=== PATIENT | female | born 1995 | race African-American/Black ===

== ENCOUNTER 2017-04-07 13:52 | Emergency (ER) | payer MEDICAID ==
[~2017-04-07 13:52] MED LIST: PRENCAP PO
--- NOTE | 2017-04-07 14:45 | PD ---
HPI Travel History International Travel<30 Days: No Contact w/Intl Traveler<30Days: No Known Affected Area: No History of Present Illness HPI 21 yr old at 37 weeks presenting with intermittent contractions. Reports that contractions started on Friday and have been occurring every 10-15 min intermittently for the last couple of days. Reports that she has been feeling pressure-like, stabbing pain. Also reports 2-3 weeks of intermittent spotting. Reports good movement. Denies leakage of fluid and dysuria. She has been receiving care at [facility]. History Past Medical History Medical History: Denies Significant Hx Obstetric History Obstetric History at 37 weeks Past deliveries were Past Surgical History Surgical History: No Previous Surgery Family History Family History: Negative Social History Alcohol Use: No Tobacco Use: No Substance Abuse: No Allergies-Medications (Allergen,Severity, Reaction): Coded Allergies: shellfish derived (Verified Allergy, Severe, Anaphylaxis, 04/02/17) Uncoded Allergies: HONEY MUSTARD (Allergy, Severe, HARD TO BREATHE, 12/10/13) Home Meds Active Scripts Without A W/ Fe Fumar (Prenate Dha 28-0.6-0.4-300 mg) 28 Mg Iron-1 Mg- 300 Mg Cap, 1 TAB PO DAILY, #30 BOTTLE 11 Refills Prov:Deidra Mckeon 02/19/17 Review of Systems Except as stated in HPI: all other systems reviewed are Neg Physical Exam Narrative GENERAL: Well-nourished, well-developed patient. SKIN: Warm and dry. HEAD: Normocephalic and atraumatic. EYES: No scleral icterus. No injection or drainage. ENT: No nasal drainage noted. Mucous membranes pink. Airway patent. NECK: Supple, trachea midline. No JVD. CARDIOVASCULAR: Regular rate and rhythm without murmurs, gallops, or rubs. RESPIRATORY: Breath sounds equal bilaterally. No accessory muscle use. ABDOMEN/GI: Abdomen soft, non-tender, bowel sounds present, no rebound, no guarding VAGINAL EXAM: closed, normal cervix FHTs: category 1, baseline 130s, reactive, moderate variability, no decels EXTREMITIES: No cyanosis or edema. BACK: Nontender without obvious deformity. No CVA tenderness. NEUROLOGICAL: Awake and alert. Motor and sensory grossly within normal limits. Data Data Vital Signs Reviewed: Yes Orders Orders Vital Signs (Adult) .ON ADMISSION (04/07/17 14:37) ^ Labor Status (04/07/17 14:37) ^ Non Stress Test (04/07/17 14:37) ^ Hydration (04/07/17 14:37) MDM Narrative Course / MDM 21 yr old at 37 weeks with [place] contractions -FHTs reassuring -Hydrate frequently -Return to ED if having regular contractions Diagnosis Diagnosis: Primary Impression: [place] contractions Disposition: 01 DISCHARGE HOME Condition: Good Ragini Merritt MD R1 Apr 07, 2017 14:45
== END 2017-04-07 15:15 | disposition home or self-care (01) ==
LOC: HOBED 13:52
DX: O47.1 False labor at or after 37 completed weeks of gestation (principal); Z3A.37 37 weeks gestation of pregnancy
CPT/HCPCS: 59025

== ENCOUNTER 2017-04-20 23:56 | Inpatient (IN) | payer MEDICAID ==
[~2017-04-20] VITALS: Ht 167.6 cm; Wt 80.7 kg
[2017-04-21] VITALS (29 sets, daily range): BP systolic 98–137; BP diastolic 44–94; PULSE 66–125; RESP 16–20; TEMP 97.7–98.7; O2SAT 100
[2017-04-21] MEDS ORDERED: LACTATED RINGER'S 1000 ML INJ 1,000 ML IV PRN (00:43)
[2017-04-21] MEDS ORDERED: SODIUM CHLORID 0.9% 500 ML INJ 500 ML IV PRN (00:45)
[2017-04-21] MEDS ORDERED: CITRIC ACID-SODIUM CITRATE LIQ 30 ML UDC PO SCH (00:45)
[2017-04-21] MEDS ORDERED: MINERAL OIL 10 ML VIAL TOPICAL PRN (00:45)
[2017-04-21] MEDS ORDERED: OXYTOCIN 30 UNITS-500ML PREMIX 500 ML IV ONE (00:45)
[2017-04-21] MEDS ORDERED: OXYTOCIN 30 UNITS-500ML PREMIX 500 ML IV SCH ×2 (00:45→04:15)
[2017-04-21] MEDS ORDERED: LIDOCAINE HCL 1% 50 ML VIAL I-DERMAL PRN (00:45)
[2017-04-21] MEDS ORDERED: LIDOCAINE HCL 1% 50 ML VIAL INFIL PRN (00:45)
[2017-04-21] MEDS ORDERED: PENICILLIN G POTASSIUM INJ 5,000,000 UNITS in SODIUM CHLORIDE 0.9% INJ 100 ML IV ONE (00:45)
[2017-04-21] MEDS ORDERED: ONDANSETRON HCL 4 MG/2 ML VIAL IV PUSH PRN (00:45)
--- NOTE | 2017-04-21 01:01 | PD ---
HPI Chief Complaint LOF Date Seen: Apr 21, 2017 Time Seen: 00:56 Travel History International Travel<30 Days: No Contact w/Intl Traveler<30Days: No Known Affected Area: No History of Present Illness HPI Pt is a 21y/o @ 39.2wks. She has late (24wks) PNC at [facility]. She presents with reports of LOF @ 11pm (clear). She states that when she arrived, ctx started. She denies VB. +FM. Weeks Gestation: 39 Para: 2 : 3 Last Menstrual Period: Apr 21, 2017 History Past Medical History Medical History: Denies Significant Hx Obstetric History Obstetric History x2 Past Surgical History Narrative Surgical vision sx @ age 2 Family History Family History: Negative Social History Alcohol Use: No Tobacco Use: No Substance Abuse: No Allergies-Medications (Allergen,Severity, Reaction): Coded Allergies: shellfish derived (Verified Allergy, Severe, Anaphylaxis, 04/21/17) Uncoded Allergies: HONEY MUSTARD (Allergy, Severe, HARD TO BREATHE, 12/10/13) Home Meds Discontinued Scripts Without A W/ Fe Fumar (Prenate Dha 28-0.6-0.4-300 mg) 28 Mg Iron-1 Mg- 300 Mg Cap, 1 TAB PO DAILY, #30 BOTTLE 11 Refills Prov:Deidra Mckeon 02/19/17 Review of Systems Except as stated in HPI: all other systems reviewed are Neg Physical Exam Narrative GENERAL: Well-nourished, well-developed patient. SKIN: Warm and dry. HEAD: Normocephalic and atraumatic. EYES: No scleral icterus. No injection or drainage. ABDOMEN/GI: Abdomen soft, non-tender, gravid EXTREMITIES: No cyanosis BACK: Nontender without obvious deformity. NEUROLOGICAL: Awake and alert. Motor and sensory grossly within normal limits. FHTs: 150, +accels, occasion variables, moderate variability, reactive TOCO: ctx q5m CVX: 4/80/-3, +meconium stained fluid Data Data Vital Signs Reviewed: Yes Orders Orders Ob (2e) Additional Admit Info (04/21/17 00:40) Vital Signs (Adult) .ON ADMISSION (04/21/17 00:43) ^ Labor Status (04/21/17 00:43) ^ Non Stress Test (04/21/17 00:43) Pamg-1 Test .ONCE (04/21/17 00:43) Admit To Inpatient (04/21/17 ) Vital Signs (Adult) .Per protocol (04/21/17 00:43) Heart (04/21/17 00:43) Amnioinfusion (04/21/17 00:43) Urinary Catheter Management .ONCE (04/21/17 00:43) Diet Liquid (04/21/17 Breakfast) Lactated Ringer's 1000 Ml Inj (Lr 1000 M (04/21/17 00:43) Lactated Ringer's 1000 Ml Inj (Lr 1000 M (04/21/17 00:43) Sodium Chlorid 0.9% 500 Ml Inj (Ns 500 M (04/21/17 00:45) Sodium Chlor 0.9% 1000 Ml Inj (Ns 1000 M (04/21/17 01:03) Lidocaine 1% Inj (50 Ml) (Xylocaine 1% I (04/21/17 00:45) Citric Acid-Sodium Citrate Liq (Bicitra (04/21/17 00:45) Ondansetron Inj (Zofran Inj) (04/21/17 00:45) Fentanyl Inj (Fentanyl Inj) (04/21/17 00:45) Fentanyl Inj (Fentanyl Inj) (04/21/17 00:45) Penicillin G Potassium Inj (Pfizerpen-G (04/21/17 00:45) Penicillin G Potassium Inj (Pfizerpen-G (04/21/17 04:45) Complete Blood Count With Diff (04/21/17 00:43) Abo/Rh Blood Type (04/21/17 00:43) Urinalysis - C+S If Indicated (04/21/17 00:43) Drug Screen, Random Urine (04/21/17 00:43) Resp Oxygen Non Rebreathe Mask (04/21/17 ) ^ Epidural / Intrathecal Infus (04/21/17 00:43) Oxytocin 30 Units-500ml Premix (Pitocin (04/21/17 00:45) Lidocaine 1% Inj (50 Ml) (Xylocaine 1% I (04/21/17 00:45) Light Mineral Oil (Muri-Lube Oil) (04/21/17 00:45) Inpatient Certification (04/21/17 ) ^ Non Stress Test (04/21/17 00:43) Response To Medication .Post New Med Administration, Reaction (04/21/17 00:43) ^ Discontinue Medication (04/21/17 00:43) Oxytocin 30 Units-500ml Premix (Pitocin (04/21/17 00:45) Group B Strep: Positive MDM Plan 21y/o @ 39.2wks with 1. PROM -- amnisure+, mec pooling -- cvx 4/80/-3 -- pitocin PRN 2. Fetus -- cat 1 tracing 3. GBS+ -- PCN ordered Diagnosis Diagnosis: Primary Impression: 39 weeks gestation of Additional Impressions: PROM with onset of labor within 24 hours of rupture Positive GBS test Late care Condition: Delaney Lamas MD Apr 21, 2017 01:01
[2017-04-21] MEDS ORDERED: SODIUM CHLOR 0.9% 1000 ML INJ 1,000 ML IV PRN (01:03)
--- NOTE | 2017-04-21 01:04 | HHI.PR ---
REPORTING SPECIALIST Note Note HPI HPI Chief Complaint LOF Date Seen: Apr 21, 2017 Time Seen: 00:56 Travel History International Travel<30 Days: No Contact w/Intl Traveler<30Days: No Known Affected Area: No History of Present Illness HPI Pt is a 21y/o @ 39.2wks. She has late (24wks) PNC at [facility]. She presents with reports of LOF @ 11pm (clear). She states that when she arrived, ctx started. She denies VB. +FM. Weeks Gestation: 39 Para: 2 : 3 Last Menstrual Period: Apr 21, 2017 History (Limited) History Past Medical History Medical History: Denies Significant Hx Obstetric History Obstetric History x2 Past Surgical History Narrative Surgical vision sx @ age 2 Family History Family History: Negative Social History Alcohol Use: No Tobacco Use: No Substance Abuse: No Allergies-Medications Allergies-Medications (Allergen,Severity, Reaction): Coded Allergies: shellfish derived (Verified Allergy, Severe, Anaphylaxis, 04/21/17) Uncoded Allergies: HONEY MUSTARD (Allergy, Severe, HARD TO BREATHE, 12/10/13) Home Meds Discontinued Scripts Without A W/ Fe Fumar (Prenate Dha 28-0.6-0.4-300 mg) 28 Mg Iron-1 Mg- 300 Mg Cap, 1 TAB PO DAILY, #30 BOTTLE 11 Refills Prov:Deidra Mckeon 02/19/17 ROS Review of Systems Except as stated in HPI: all other systems reviewed are Neg Physical Exam Physical Exam Narrative GENERAL: Well-nourished, well-developed patient. SKIN: Warm and dry. HEAD: Normocephalic and atraumatic. EYES: No scleral icterus. No injection or drainage. ABDOMEN/GI: Abdomen soft, non-tender, gravid EXTREMITIES: No cyanosis BACK: Nontender without obvious deformity. NEUROLOGICAL: Awake and alert. Motor and sensory grossly within normal limits. FHTs: 150, +accels, occasion variables, moderate variability, reactive TOCO: ctx q5m CVX: 4/80/-3, +meconium stained fluid Data Data Data Vital Signs Reviewed: Yes Orders Orders Ob (2e) Additional Admit Info (04/21/17 00:40) Vital Signs (Adult) .ON ADMISSION (04/21/17 00:43) ^ Labor Status (04/21/17 00:43) ^ Non Stress Test (04/21/17 00:43) Pamg-1 Test .ONCE (04/21/17 00:43) Admit To Inpatient (04/21/17 ) Vital Signs (Adult) .Per protocol (04/21/17 00:43) Heart (04/21/17 00:43) Amnioinfusion (04/21/17 00:43) Urinary Catheter Management .ONCE (04/21/17 00:43) Diet Liquid (04/21/17 Breakfast) Lactated Ringer's 1000 Ml Inj (Lr 1000 M (04/21/17 00:43) Lactated Ringer's 1000 Ml Inj (Lr 1000 M (04/21/17 00:43) Sodium Chlorid 0.9% 500 Ml Inj (Ns 500 M (04/21/17 00:45) Sodium Chlor 0.9% 1000 Ml Inj (Ns 1000 M (04/21/17 01:03) Lidocaine 1% Inj (50 Ml) (Xylocaine 1% I (04/21/17 00:45) Citric Acid-Sodium Citrate Liq (Bicitra (04/21/17 00:45) Ondansetron Inj (Zofran Inj) (04/21/17 00:45) Fentanyl Inj (Fentanyl Inj) (04/21/17 00:45) Fentanyl Inj (Fentanyl Inj) (04/21/17 00:45) Penicillin G Potassium Inj (Pfizerpen-G (04/21/17 00:45) Penicillin G Potassium Inj (Pfizerpen-G (04/21/17 04:45) Complete Blood Count With Diff (04/21/17 00:43) Abo/Rh Blood Type (04/21/17 00:43) Urinalysis - C+S If Indicated (04/21/17 00:43) Drug Screen, Random Urine (04/21/17 00:43) Resp Oxygen Non Rebreathe Mask (04/21/17 ) ^ Epidural / Intrathecal Infus (04/21/17 00:43) Oxytocin 30 Units-500ml Premix (Pitocin (04/21/17 00:45) Lidocaine 1% Inj (50 Ml) (Xylocaine 1% I (04/21/17 00:45) Light Mineral Oil (Muri-Lube Oil) (04/21/17 00:45) Inpatient Certification (04/21/17 ) ^ Non Stress Test (04/21/17 00:43) Response To Medication .Post New Med Administration, Reaction (04/21/17 00:43) ^ Discontinue Medication (04/21/17 00:43) Oxytocin 30 Units-500ml Premix (Pitocin (04/21/17 00:45) Group B Strep: Positive MDM MDM Plan 21y/o @ 39.2wks with 1. PROM -- amnisure+, mec pooling -- cvx 4/80/-3 -- pitocin PRN 2. Fetus -- cat 1 tracing 3. GBS+ -- PCN ordered Diagnosis Diagnosis: Primary Impression: 39 weeks gestation of Additional Impressions: PROM with onset of labor within 24 hours of rupture Positive GBS test Late care Condition: Good eDlaney Barrera MD Apr 21, 2017 01:01 Delaney Barrera MD Apr 21, 2017 01:04
[2017-04-21 01:10] LABS: AUTOMATED NEUTROPHIL # 7.2 TH/MM3 (1.8-7.7); BASOPHIL % 0.4 % (0.0-2.0); EOSINOPHIL % 0.3 % (0.0-4.0); HEMATOCRIT 32.2 % (35.0-46.0); HEMOGLOBIN 10.9 GM/DL (11.6-15.3); LYMPH % 21.5 % (9.0-44.0); LYMPHOCYTE # 2.2 TH/MM3 (1.0-4.8); MEAN CELL VOLUME 85.5 FL (80.0-100.0); MEAN CORPUSCULAR HEMOGLOBIN 28.9 PG (27.0-34.0); MEAN CORPUSCULAR HGB CONC 33.8 % (32.0-36.0); MEAN PLATELET VOLUME 9.6 FL (7.0-11.0); MONO % 7.6 % (0.0-8.0); MONOCYTE # 0.8 TH/MM3 (0-0.9); NEUT % 70.2 % (16.0-70.0); PLATELET COUNT 211 TH/MM3 (150-450); RED BLOOD COUNT 3.76 MIL/MM3 (4.00-5.30); RED CELL DISTRIBUTION WIDTH 13.7 % (11.6-17.2); WHITE BLOOD COUNT 10.2 TH/MM3 (4.0-11.0)
[2017-04-21 01:20] LABS: AMORPHOUS SEDIMENT, URINE RARE; BACTERIA, URINE MOD /hpf; BILIRUBIN, URINE NEG (NEG); BLOOD, URINE MOD (NEG); GLUCOSE,URINE NEG (NEG); KETONE, URINE NEG (NEG); MUCUS URINE FEW /lpf (OCC); NITRITE,URINE NEG (NEG); PH, URINE 6.5 (5.0-8.5); RENAL EPITHELIAL CELLS <1 /hpf; SQUAMOUS EPITHELIAL CELL URINE 37 /hpf (0-5); URINE COLOR YELLOW (YELLW/STRAW); URINE LEUKOCYTE ESTERASE MOD (NEG)
[2017-04-21] MEDS: LACTATED RINGER'S 1000 ML INJ 1,000 ML IV SCH ×3 (01:30→16:43)
[2017-04-21] MEDS ORDERED: fentaNYL 2MCG-BUPIV 0.125% INJ 100 ML ONE (02:26)
[2017-04-21] MEDS ORDERED: ePHEDrine/NS 25 MG/5 ML SYR ONE (02:27)
[2017-04-21] MEDS ORDERED: fentaNYL 2MCG-BUPIV 0.125% 100 ML EPIDURAL SCH (02:30)
[2017-04-21] MEDS ORDERED: NO SYSTEM NARCOTICS PRN (02:30)
[2017-04-21] MEDS ORDERED: DO NOT ADMINISTER ANTICOAGULANTS PRN (02:30)
[2017-04-21] MEDS ORDERED: ePHEDrine/NS 25 MG/5 ML SYR IV PUSH PRN (03:45)
--- NOTE | 2017-04-21 04:05 | PD.OB.DELI ---
Weeks gestation: 39 Gest age assessed date: Apr 21, 2017 Gest age assessed time: 04:03 Pt started active labor?: Yes Medical induction of labor?: No Artificial rupture of membrane: No Anesthesia: Epidural Episiotomy: None Vaginal Delivery: Normal Presentation: Occiput anterior Nuchal Cord: None Delayed cord clamping (45 sec): Yes : Male Delivery date: Apr 21, 2017 Delivery time: 03:53 One Minute : 8 Five Minute : 9 Weight: 3010g (6lbs 10oz) Placenta: Spontaneous delivery, Intact, 3 vessel cord Laceration: Episiotomy Estimated blood loss: 100cc Delaney Barrera MD Apr 21, 2017 04:05
[2017-04-21] MEDS ORDERED: ONDANSETRON ODT 4 MG TAB PO PRN (04:15)
[2017-04-21] MEDS ORDERED: ALUMINUM/MAGNESIUM/SIMETH 30 ML CUP PO PRN (04:15)
[2017-04-21] MEDS ORDERED: WITCH HAZEL 50%/GLYCERIN 12.5% 40 PAD JAR TOPICAL PRN (04:15)
[2017-04-21] MEDS ORDERED: ZOLPIDEM TARTRATE 5 MG TAB PO PRN (04:15)
[2017-04-21] MEDS ORDERED: BENZOCAINE 20% TOPICAL SPRAY 60 ML CAN TOPICAL PRN (04:15)
[2017-04-21] MEDS ORDERED: DOCUSATE SODIUM 50 MG/SENNA 8.6 MG TAB PO PRN (04:15)
[2017-04-21] MEDS ORDERED: SODIUM CHLORIDE 0.9% FLUSH 10 ML FLUSH IV FLUSH PRN (04:15)
[2017-04-21] MEDS ORDERED: ACETAMINOPHEN 325 MG TAB PO PRN (04:15)
[2017-04-21] MEDS: PENICILLIN G POTASSIUM INJ 2,500,000 UNITS in SODIUM CHLORIDE 0.9% INJ 100 ML IV SCH ×5 (04:41→20:45)
[2017-04-21] MEDS: IBUPROFEN 600 MG TAB PO PRN ×2 (08:07→22:49)
[2017-04-21] MEDS: SODIUM CHLORIDE 0.9% FLUSH 10 ML FLUSH IV FLUSH SCH ×2 (09:00→21:00)
[2017-04-21] MEDS ORDERED: DIPHTH/TETANUS/ACEL PERTUSSIS (BOOSTER) 0.5 ML VIAL/PFS IM ONE (16:00)
[2017-04-21] MEDS ORDERED: MEASLES, MUMPS, RUBELLA VACCINE 0.5 ML VIAL SQ ONE (16:00)
[2017-04-22] MEDS: LACTATED RINGER'S 1000 ML INJ 1,000 ML IV SCH ×3 (00:43→12:58)
[2017-04-22] MEDS: PENICILLIN G POTASSIUM INJ 2,500,000 UNITS in SODIUM CHLORIDE 0.9% INJ 100 ML IV SCH ×6 (00:45→20:45)
[2017-04-22 03:30] VITALS: BP 105/60; PULSE 77; RESP 16; TEMP 98
[2017-04-22 07:50] VITALS: BP 106/67; PULSE 74; RESP 18; TEMP 98.7
[2017-04-22] MEDS ORDERED: INFLUENZA VIRUS VACCINE (QUADRIVALENT) 0.5 ML SYR IM ONE (09:00)
[2017-04-22] MEDS: SODIUM CHLORIDE 0.9% FLUSH 10 ML FLUSH IV FLUSH SCH ×2 (09:00→21:00)
--- NOTE | 2017-04-22 10:24 | HHI.OB ---
Subjective Remarks 21 year old female s/p at 39 wks gestation, PPD 1. AFVSS. Patient reports she is feeling well. Bleeding is decreasing and pain is well- controlled. She is formula feeding and bonding well with baby. Ambulating without difficulties. She is tolerating a diet without nausea or vomiting. She has not had a bowel movement. She has passed gas. Denies chest pain, dysuria, shortness of breath, or calf pain. Objective Vitals/I&O Vital Signs Date Time Temp Pulse Resp B/P (MAP) Pulse Ox O2 Delivery O2 Flow Rate FiO2 04/22/17 07:50 98.7 18 04/22/17 07:50 74 106/67 (80) 04/22/17 03:30 77 105/60 (75) 04/22/17 03:30 98.0 77 16 105/60 (75) 04/22/17 03:30 98.0 16 04/21/17 20:25 97.7 04/21/17 20:25 81 20 108/59 (75) 100 04/21/17 20:25 97.7 81 20 108/59 (75) 100 Objective Remarks GENERAL: Well-nourished, well-developed patient. CARDIOVASCULAR: Regular rate and rhythm without murmurs, gallops, or rubs. RESPIRATORY: Breath sounds equal bilaterally. No accessory muscle use. ABDOMEN/GI: Abdomen soft, non-tender. Fundus: Firm, non-tender at umbilicus. GENITOURINARY: Light to moderate bleeding. EXTREMITIES: No cyanosis or edema, non-tender, without signs of DVT. Medications and IVs Current Medications Medications (Trade) Dose Ordered Sig/Teddy Route Start Time Stop Time Status Last Admin Lactated Ringer's 1,000 ml @ 125 mls/hr Q8H IV 04/21/17 00:43 04/21/17 03:27 Lactated Ringer's 1,000 ml @ 3,000 mls/hr Q20M PRN IV 04/21/17 00:43 Sodium Chloride 500 ml @ 1,000 mls/hr ONCE PRN IV 04/21/17 00:45 Sodium Chloride 1,000 ml @ 100 mls/hr Q10H PRN IV 04/21/17 01:03 (Xylocaine 1% Inj (50 ml)) 0.1 ml UNSCH X1 PRN I-DERMAL 10/30/17 00:45 04/24/17 00:44 (Bicitra Liq) 30 ml WAREHOUSE RECEIVING SUPERVISOR PO 04/21/17 00:45 04/25/17 00:44 (Zofran Inj) 4 mg Q6H PRN IV PUSH 04/21/17 00:45 (fentaNYL INJ) 50 mcg Q1H PRN IV PUSH 04/21/17 00:45 (fentaNYL INJ) 100 mcg Q1H PRN IV PUSH 04/21/17 00:45 Penicillin G Potassium 3250421 units/Sodium Chloride 100 ml @ 200 mls/hr Q4H IV 04/21/17 04:45 (Xylocaine 1% Inj (50 ml)) 10 ml UNSCH X1 PRN INFIL 04/21/17 00:45 04/23/17 00:44 (Muri-Lube Oil) 10 ml UNSCH PRN TOPICAL 04/21/17 00:45 Oxytocin 500 ml @ 0 mls/hr TITRATE IV 04/21/17 00:45 Fentanyl/ Bupivacaine HCl 100 ml @ 0 mls/hr TITRATE EPIDURAL 04/21/17 02:30 (NS Flush) 2 ml BID IV FLUSH 04/21/17 09:00 (NS Flush) 2 ml UNSCH PRN IV FLUSH 04/21/17 04:15 (Tylenol) 650 mg Q4H PRN PO 04/21/17 04:15 (Motrin) 600 mg Q6H PRN PO 04/21/17 04:15 04/21/17 22:49 (Americaine 20% Top Spr) 1 spray Q4H PRN TOPICAL 04/21/17 04:15 (Tucks Pads) 1 applic QID PRN TOPICAL 04/21/17 04:15 (Tram-Colace) 2 tab Q12H PRN PO 04/21/17 04:15 (Ambien) 5 mg HS PRN PO 04/21/17 04:15 (Mag-Al Plus Susp Liq) 15 ml Q8H PRN PO 04/21/17 04:15 (Zofran Odt) 4 mg Q6H PRN PO 04/21/17 04:15 Assessment/Plan Assessment and Plan 21 yo female s/p , PPD 1 - AFVSS - Continue routine care - Motrin PRN pain - Encourage OOB - Pelvic rest x 6 wks - Contraception: will discuss PPD 2 - Anticipate D/C 04/23 Sukumar Argueta MD R2 Apr 22, 2017 10:24
[2017-04-22 20:50] VITALS: BP 115/60; PULSE 66; RESP 18; TEMP 98.2
[2017-04-23] MEDS: LACTATED RINGER'S 1000 ML INJ 1,000 ML IV SCH (00:43)
[2017-04-23] MEDS: PENICILLIN G POTASSIUM INJ 2,500,000 UNITS in SODIUM CHLORIDE 0.9% INJ 100 ML IV SCH (00:45)
[2017-04-23 07:55] VITALS: BP 125/79; PULSE 67; RESP 16; TEMP 98.7
--- NOTE | 2017-04-23 08:23 | HHI.DCPOC ---
Discharge Care Plan Diagnosis: (1) Normal vaginal delivery Report Symptoms to Your Doctor -Temperature above 100.5 degrees -Redness, of incision or excessive or foul smelling drainage -Unusual pain or calf pain -Increased vaginal bleeding -Painful or difficulty urinating -Feelings of extreme sadness or anxiety after 2 weeks Goals to Promote Your Health * To prevent worsening of your condition and complications * To maintain your health at the optimal level Directions to Meet Your Goals Take your medications as prescribed Follow your dietary instruction Follow activity as directed Ensure plenty of rest for recovery Drink fluids for hydration Keep your appointments as scheduled Take your immunizations and boosters as scheduled If your symptoms worsen call your PCP, if no PCP go to Urgent Care Center or Emergency Room Smoking is Dangerous to Your Health. Avoid second hand smoke Call the 24-hour crisis hotline for domestic abuse at Ragini Merritt MD R1 Apr 23, 2017 08:23
--- NOTE | 2017-04-23 08:23 | HHI.DCPOC ---
Discharge Care Plan Diagnosis: (1) Normal vaginal delivery Report Symptoms to Your Doctor -Temperature above 100.5 degrees -Redness, of incision or excessive or foul smelling drainage -Unusual pain or calf pain -Increased vaginal bleeding -Painful or difficulty urinating -Feelings of extreme sadness or anxiety after 2 weeks Goals to Promote Your Health * To prevent worsening of your condition and complications * To maintain your health at the optimal level Directions to Meet Your Goals Take your medications as prescribed Follow your dietary instruction Follow activity as directed Ensure plenty of rest for recovery Drink fluids for hydration Keep your appointments as scheduled Take your immunizations and boosters as scheduled If your symptoms worsen call your PCP, if no PCP go to Urgent Care Center or Emergency Room Smoking is Dangerous to Your Health. Avoid second hand smoke Call the 24-hour crisis hotline for domestic abuse at Ragini Merritt MD R1 Apr 23, 2017 08:23
--- NOTE | 2017-04-23 08:23 | HHI.DCPOC ---
Discharge Care Plan Diagnosis: (1) Normal vaginal delivery Report Symptoms to Your Doctor -Temperature above 100.5 degrees -Redness, of incision or excessive or foul smelling drainage -Unusual pain or calf pain -Increased vaginal bleeding -Painful or difficulty urinating -Feelings of extreme sadness or anxiety after 2 weeks Goals to Promote Your Health * To prevent worsening of your condition and complications * To maintain your health at the optimal level Directions to Meet Your Goals Take your medications as prescribed Follow your dietary instruction Follow activity as directed Ensure plenty of rest for recovery Drink fluids for hydration Keep your appointments as scheduled Take your immunizations and boosters as scheduled If your symptoms worsen call your PCP, if no PCP go to Urgent Care Center or Emergency Room Smoking is Dangerous to Your Health. Avoid second hand smoke Call the 24-hour crisis hotline for domestic abuse at Ragini Merritt MD R1 Apr 23, 2017 08:23
[2017-04-23] MEDS ORDERED: IBUP-232 PO (08:27)
--- NOTE | 2017-04-23 08:30 | HHI.OB ---
Subjective Remarks 21 year old female s/p at 39 wks gestation, PPD 2. AFVSS. Patient reports she is feeling well. Bleeding is decreasing and pain is well- controlled. She is formula feeding and bonding well with baby. Ambulating without difficulties. She is tolerating a diet without nausea or vomiting. She has not had a bowel movement. She has passed gas. Denies chest pain, dysuria, shortness of breath, or calf pain. Objective Vitals/I&O Vital Signs Date Time Temp Pulse Resp B/P (MAP) Pulse Ox O2 Delivery O2 Flow Rate FiO2 04/22/17 20:50 98.2 66 18 115/60 (78) Objective Remarks GENERAL: Well-nourished, well-developed patient. CARDIOVASCULAR: Regular rate and rhythm without murmurs, gallops, or rubs. RESPIRATORY: Breath sounds equal bilaterally. No accessory muscle use. ABDOMEN/GI: Abdomen soft, non-tender. Fundus: Firm, non-tender at umbilicus. GENITOURINARY: Light to moderate bleeding. EXTREMITIES: No cyanosis or edema, non-tender, without signs of DVT. Medications and IVs Current Medications Medications (Trade) Dose Ordered Sig/Teddy Route Start Time Stop Time Status Last Admin Lactated Ringer's 1,000 ml @ 125 mls/hr Q8H IV 04/21/17 00:43 04/21/17 03:27 Lactated Ringer's 1,000 ml @ 3,000 mls/hr Q20M PRN IV 04/21/17 00:43 Sodium Chloride 500 ml @ 1,000 mls/hr ONCE PRN IV 04/21/17 00:45 Sodium Chloride 1,000 ml @ 100 mls/hr Q10H PRN IV 04/21/17 01:03 (Xylocaine 1% Inj (50 ml)) 0.1 ml UNSCH X1 PRN I-DERMAL 04/21/17 00:45 04/24/17 00:44 (Bicitra Liq) 30 ml SUPERVISOR CALIBRATION PO 04/21/17 00:45 04/25/17 00:44 (Zofran Inj) 4 mg Q6H PRN IV PUSH 04/21/17 00:45 (fentaNYL INJ) 50 mcg Q1H PRN IV PUSH 04/21/17 00:45 (fentaNYL INJ) 100 mcg Q1H PRN IV PUSH 04/21/17 00:45 Penicillin G Potassium 9339541 units/Sodium Chloride 100 ml @ 200 mls/hr Q4H IV 04/21/17 04:45 (Muri-Lube Oil) 10 ml UNSCH PRN TOPICAL 04/21/17 00:45 Oxytocin 500 ml @ 0 mls/hr TITRATE IV 04/21/17 00:45 Fentanyl/ Bupivacaine HCl 100 ml @ 0 mls/hr TITRATE EPIDURAL 04/21/17 02:30 (NS Flush) 2 ml BID IV FLUSH 04/21/17 09:00 (NS Flush) 2 ml UNSCH PRN IV FLUSH 04/21/17 04:15 (Tylenol) 650 mg Q4H PRN PO 04/21/17 04:15 (Motrin) 600 mg Q6H PRN PO 04/21/17 04:15 04/21/17 22:49 (Americaine 20% Top Spr) 1 spray Q4H PRN TOPICAL 04/21/17 04:15 (Tucks Pads) 1 applic QID PRN TOPICAL 04/21/17 04:15 (Tram-Colace) 2 tab Q12H PRN PO 04/21/17 04:15 (Ambien) 5 mg HS PRN PO 04/21/17 04:15 (Mag-Al Plus Susp Liq) 15 ml Q8H PRN PO 04/21/17 04:15 (Zofran Odt) 4 mg Q6H PRN PO 04/21/17 04:15 Assessment/Plan Assessment and Plan 21 yo female s/p , PPD 2 - AFVSS - Continue routine care - Motrin PRN pain - Encourage OOB - Pelvic rest x 6 wks - Contraception: interested in Mirena, will discuss with WOODWORKING MACHINIST at 6 week f/u - Anticipate D/C today Ragini Merritt MD R1 Apr 23, 2017 08:30
--- NOTE | 2017-04-23 08:30 | HHI.OB ---
Subjective Remarks 21 year old female s/p at 39 wks gestation, PPD 2. AFVSS. Patient reports she is feeling well. Bleeding is decreasing and pain is well- controlled. She is formula feeding and bonding well with baby. Ambulating without difficulties. She is tolerating a diet without nausea or vomiting. She has not had a bowel movement. She has passed gas. Denies chest pain, dysuria, shortness of breath, or calf pain. Objective Vitals/I&O Vital Signs Date Time Temp Pulse Resp B/P (MAP) Pulse Ox O2 Delivery O2 Flow Rate FiO2 04/22/17 20:50 98.2 66 18 115/60 (78) Objective Remarks GENERAL: Well-nourished, well-developed patient. CARDIOVASCULAR: Regular rate and rhythm without murmurs, gallops, or rubs. RESPIRATORY: Breath sounds equal bilaterally. No accessory muscle use. ABDOMEN/GI: Abdomen soft, non-tender. Fundus: Firm, non-tender at umbilicus. GENITOURINARY: Light to moderate bleeding. EXTREMITIES: No cyanosis or edema, non-tender, without signs of DVT. Medications and IVs Current Medications Medications (Trade) Dose Ordered Sig/Teddy Route Start Time Stop Time Status Last Admin Lactated Ringer's 1,000 ml @ 125 mls/hr Q8H IV 04/21/17 00:43 04/21/17 03:27 Lactated Ringer's 1,000 ml @ 3,000 mls/hr Q20M PRN IV 04/21/17 00:43 Sodium Chloride 500 ml @ 1,000 mls/hr ONCE PRN IV 04/21/17 00:45 Sodium Chloride 1,000 ml @ 100 mls/hr Q10H PRN IV 04/21/17 01:03 (Xylocaine 1% Inj (50 ml)) 0.1 ml UNSCH X1 PRN I-DERMAL 04/21/17 00:45 04/24/17 00:44 (Bicitra Liq) 30 ml PRODUCTION SUPERINTENDENT HYDRO PO 04/21/17 00:45 04/25/17 00:44 (Zofran Inj) 4 mg Q6H PRN IV PUSH 04/21/17 00:45 (fentaNYL INJ) 50 mcg Q1H PRN IV PUSH 04/21/17 00:45 (fentaNYL INJ) 100 mcg Q1H PRN IV PUSH 04/21/17 00:45 Penicillin G Potassium 9951996 units/Sodium Chloride 100 ml @ 200 mls/hr Q4H IV 04/21/17 04:45 (Muri-Lube Oil) 10 ml UNSCH PRN TOPICAL 04/21/17 00:45 Oxytocin 500 ml @ 0 mls/hr TITRATE IV 04/21/17 00:45 Fentanyl/ Bupivacaine HCl 100 ml @ 0 mls/hr TITRATE EPIDURAL 04/21/17 02:30 (NS Flush) 2 ml BID IV FLUSH 04/21/17 09:00 (NS Flush) 2 ml UNSCH PRN IV FLUSH 04/21/17 04:15 (Tylenol) 650 mg Q4H PRN PO 04/21/17 04:15 (Motrin) 600 mg Q6H PRN PO 04/21/17 04:15 04/21/17 22:49 (Americaine 20% Top Spr) 1 spray Q4H PRN TOPICAL 04/21/17 04:15 (Tucks Pads) 1 applic QID PRN TOPICAL 04/21/17 04:15 (Tram-Colace) 2 tab Q12H PRN PO 04/21/17 04:15 (Ambien) 5 mg HS PRN PO 04/21/17 04:15 (Mag-Al Plus Susp Liq) 15 ml Q8H PRN PO 04/21/17 04:15 (Zofran Odt) 4 mg Q6H PRN PO 04/21/17 04:15 Assessment/Plan Assessment and Plan 21 yo female s/p , PPD 2 - AFVSS - Continue routine care - Motrin PRN pain - Encourage OOB - Pelvic rest x 6 wks - Contraception: interested in Mirena, will discuss with SECURITY ESCORT at 6 week f/u - Anticipate D/C today Ragini Merritt MD R1 Apr 23, 2017 08:30
--- NOTE | 2017-04-23 08:30 | HHI.OB ---
Subjective Remarks 21 year old female s/p at 39 wks gestation, PPD 2. AFVSS. Patient reports she is feeling well. Bleeding is decreasing and pain is well- controlled. She is formula feeding and bonding well with baby. Ambulating without difficulties. She is tolerating a diet without nausea or vomiting. She has not had a bowel movement. She has passed gas. Denies chest pain, dysuria, shortness of breath, or calf pain. Objective Vitals/I&O Vital Signs Date Time Temp Pulse Resp B/P (MAP) Pulse Ox O2 Delivery O2 Flow Rate FiO2 04/22/17 20:50 98.2 66 18 115/60 (78) Objective Remarks GENERAL: Well-nourished, well-developed patient. CARDIOVASCULAR: Regular rate and rhythm without murmurs, gallops, or rubs. RESPIRATORY: Breath sounds equal bilaterally. No accessory muscle use. ABDOMEN/GI: Abdomen soft, non-tender. Fundus: Firm, non-tender at umbilicus. GENITOURINARY: Light to moderate bleeding. EXTREMITIES: No cyanosis or edema, non-tender, without signs of DVT. Medications and IVs Current Medications Medications (Trade) Dose Ordered Sig/Teddy Route Start Time Stop Time Status Last Admin Lactated Ringer's 1,000 ml @ 125 mls/hr Q8H IV 04/21/17 00:43 04/21/17 03:27 Lactated Ringer's 1,000 ml @ 3,000 mls/hr Q20M PRN IV 04/21/17 00:43 Sodium Chloride 500 ml @ 1,000 mls/hr ONCE PRN IV 04/21/17 00:45 Sodium Chloride 1,000 ml @ 100 mls/hr Q10H PRN IV 04/21/17 01:03 (Xylocaine 1% Inj (50 ml)) 0.1 ml UNSCH X1 PRN I-DERMAL 04/21/17 00:45 04/24/17 00:44 (Bicitra Liq) 30 ml CONFIGURATION MANAGEMENT MANAGER PO 04/21/17 00:45 04/25/17 00:44 (Zofran Inj) 4 mg Q6H PRN IV PUSH 04/21/17 00:45 (fentaNYL INJ) 50 mcg Q1H PRN IV PUSH 04/21/17 00:45 (fentaNYL INJ) 100 mcg Q1H PRN IV PUSH 04/21/17 00:45 Penicillin G Potassium 5893025 units/Sodium Chloride 100 ml @ 200 mls/hr Q4H IV 04/21/17 04:45 (Muri-Lube Oil) 10 ml UNSCH PRN TOPICAL 04/21/17 00:45 Oxytocin 500 ml @ 0 mls/hr TITRATE IV 04/21/17 00:45 Fentanyl/ Bupivacaine HCl 100 ml @ 0 mls/hr TITRATE EPIDURAL 04/21/17 02:30 (NS Flush) 2 ml BID IV FLUSH 04/21/17 09:00 (NS Flush) 2 ml UNSCH PRN IV FLUSH 04/21/17 04:15 (Tylenol) 650 mg Q4H PRN PO 04/21/17 04:15 (Motrin) 600 mg Q6H PRN PO 04/21/17 04:15 04/21/17 22:49 (Americaine 20% Top Spr) 1 spray Q4H PRN TOPICAL 04/21/17 04:15 (Tucks Pads) 1 applic QID PRN TOPICAL 04/21/17 04:15 (Tram-Colace) 2 tab Q12H PRN PO 04/21/17 04:15 (Ambien) 5 mg HS PRN PO 04/21/17 04:15 (Mag-Al Plus Susp Liq) 15 ml Q8H PRN PO 04/21/17 04:15 (Zofran Odt) 4 mg Q6H PRN PO 04/21/17 04:15 Assessment/Plan Assessment and Plan 21 yo female s/p , PPD 2 - AFVSS - Continue routine care - Motrin PRN pain - Encourage OOB - Pelvic rest x 6 wks - Contraception: interested in Mirena, will discuss with [employer] APPRENTICE at 6 week f/u - Anticipate D/C today Ragini Merritt MD R1 Apr 23, 2017 08:30
== END 2017-04-23 11:57 | disposition home or self-care (01) | DRG 775 ==
LOC: HOBED 23:56 → H2EB 04-21 00:46 → H1EA 04-21 05:31
PROVIDERS: ADMIT Obstetrics & Gynecology; ATTEND Obstetrics & Gynecology
PROC: 10E0XZZ Delivery of Products of Conception, External Approach (ICD-10-PCS; principal; 2017-04-21)
PROC: 3E0R3BZ Introduction of Anesthetic Agent into Spinal Canal, Percutaneous Approach (ICD-10-PCS; 2017-04-21)
PROC: 00HU33Z Insertion of Infusion Device into Spinal Canal, Percutaneous Approach (ICD-10-PCS; 2017-04-21)
DX: O42.02 Full-term premature rupture of membranes, onset of labor within 24 hours of rupture (principal); O99.824 Streptococcus B carrier state complicating childbirth; O77.0 Labor and delivery complicated by meconium in amniotic fluid; Z37.0 Single live birth; Z3A.39 39 weeks gestation of pregnancy
CPT/HCPCS: 80307; 81001; 84112; 85025; 87086; 88307; 90686; 90715; J2540; J2590; J7120; Q2038

== ENCOUNTER 2017-06-14 18:20 | Emergency (ER) | payer MEDICAID ==
[~2017-06-14] VITALS: Ht 167.6 cm; Wt 75.0 kg
[~2017-06-14 18:20] MED LIST changes: +IBUP-232 PO; +LEVO1IUD4 I-UTERINE; -PRENCAP PO
[2017-06-14 18:25] VITALS: BP 116/67; PULSE 87; RESP 18; TEMP 98.8; O2SAT 95
--- NOTE | 2017-06-14 19:07 | PD ---
HPI Chief Complaint: Cold / Flu Symptoms Time Seen by Provider: 18:58 Travel History International Travel<30 days: No Contact w/Intl Traveler<30days: No Traveled to known affect area: No History of Present Illness HPI 21 -year-old female with cough and nasal congestion 1 week. She also reports episodes of wheezing. She has a history of asthma. Denies fever or chills. Severity is moderate. No aggravating or alleviating factors. PFSH Past Medical History Asthma: Yes ( A CHILD) Developmental Delay: No Diminished Hearing: No Respiratory: Yes (ASTHMA) Immunizations Current: Yes ?: Not LMP: 06/11/2017 : 2 Para: 1 Miscarriage: 0 : 0 Past Surgical History Eye Surgery: Yes (age 2 [place]ISION ) Social History Alcohol Use: No Tobacco Use: No Substance Use: No Allergies-Medications (Allergen,Severity, Reaction): Coded Allergies: shellfish derived (Verified Allergy, Severe, Anaphylaxis, 06/14/17) Uncoded Allergies: HONEY MUSTARD (Allergy, Severe, HARD TO BREATHE, 12/10/13) Reported Meds & Prescriptions Reported Meds & Active Scripts Active Reported Kyleena (Levonorgestrel (IUD)) 17.5 Mcg/24 Hour (5 Years) Iud 1 Ea I-UTERINE ONCE Review of Systems Except as stated in HPI: all other systems reviewed are Neg General / Constitutional: No: Fever HENT: Positive: Congestion Respiratory: Positive: Cough, Wheezing Physical Exam Narrative GENERAL: Alert female, well-appearing. SKIN: Warm and dry. HEAD: Normocephalic. EYES: No scleral icterus. No injection or drainage. ENT: Nasal congestion with clear discharge. Sinuses are nontender. Mouth pharyngeal erythema without tonsillar hypertrophy or exudate. NECK: Supple, trachea midline. No JVD or lymphadenopathy. CARDIOVASCULAR: Regular rate and rhythm without murmurs, gallops, or rubs. RESPIRATORY: Breath sounds equal bilaterally. No accessory muscle use. GASTROINTESTINAL: Abdomen soft, non-tender, nondistended. Data Data Last Documented VS Vital Signs Date Time Temp Pulse Resp B/P (MAP) Pulse Ox O2 Delivery O2 Flow Rate FiO2 06/14/17 18:25 98.8 87 18 116/67 (83) 95 MDM Medical Decision Making Medical Screen Exam Complete: Yes Emergency Medical Condition: Yes Differential Diagnosis URI, Bronchitis, influenza Narrative Course 21 year old female with cough and wheezing times one week. Diagnosis Primary Impression: URI (upper respiratory infection) Qualified Codes: J06.9 - Acute upper respiratory infection, unspecified Referrals: Primary Care Physician Additional Instructions: Stable hydrated. Follow-up with her primary doctor. Scripts Benzonatate (Tessalon Perles) 100 Mg Cap 100 MG PO TID Y for COUGH for 5 Days, CAP 0 Refills Prov: Daniela Ha 06/14/17 Albuterol 18 GM Inh (Ventolin Hfa 18 GM Inh) 90 Mcg/Act Aer 2 PUFF INH Q4-6H Y for SHORTNESS OF BREATH, #1 INHALER 0 Refills Prov: Daniela Ha 06/14/17 Prednisone (Prednisone) 20 Mg Tab 40 MG PO DAILY, #10 TAB 0 Refills Take 40 mg (2 tablets) daily for 5 days Prov: Daniela Ha 06/14/17 Disposition: 01 DISCHARGE HOME Condition: Stable Daniela Ha Jun 14, 2017 19:07
[2017-06-14] MEDS ORDERED: BENZ100 PO (19:15)
[2017-06-14] MEDS ORDERED: VENTAER INH (19:15)
[2017-06-14] MEDS ORDERED: PRED20 PO (19:15)
== END 2017-06-14 19:24 | disposition home or self-care (01) ==
LOC: PHEFT 18:20
DX: J06.9 Acute upper respiratory infection, unspecified (principal); J45.909 Unspecified asthma, uncomplicated
CPT/HCPCS: 99284